=== PATIENT | female | born 1995 | race Caucasian/White ===

== ENCOUNTER 2020-05-15 16:56 | Emergency (ER) | payer MEDICAID ==
[~2020-05-15] VITALS: Ht 152.4 cm; Wt 79.5 kg
[2020-05-15] MEDS ORDERED: ondansetron/PF 4mg/2ml inj IV ONE (17:40)
[2020-05-15] MEDS ORDERED: normal saline 1000ML IV soln IVB ONE ×3 (17:40→21:05)
[2020-05-15 18:17] LABS: ALANINE AMINOTRANSFERASE 36 U/L (12-78); ALBUMIN 4.2 G/DL (3.4-5.0); ALBUMIN/GLOBULIN RATIO 1.1 (1.1-1.5); ALKALINE PHOSPHATASE 75 IU/L (46-116); ANION GAP 13 (8-16); ASPARTATE AMINO TRANSFERASE 26 U/L (10-37); BASOPHILS # (AUTO) 0.1 X10'3 (0-0.2); BASOPHILS % (AUTO) 0.5 % (0-1); BILIRUBIN,TOTAL 0.6 MG/DL (0.1-1.0); BLOOD UREA NITROGEN 8 MG/DL (7-18); BUN/CREATININE RATIO 11.3 (6.6-38.0); CALCIUM 9.3 MG/DL (8.5-10.1); CHLORIDE 103 MMOL/L (99-107); CREATININE 0.71 MG/DL (0.40-0.90); EOSINOPHILS % (AUTO) 0.1 % (0-6); GLUCOSE 101 MG/DL (70-104); HEMATOCRIT 38.4 % (35.0-45.0); LYMPHOCYTES # (AUTO) 3.3 X10'3 (1.1-4.8); LYMPHOCYTES % (AUTO) 22.6 % (21-51); MEAN CORPUSCULAR HGB CONC 33.9 g/dL (33.0-36.5); MEAN CORPUSCULAR VOLUME 85.4 FL (78-98); MONOCYTES # (AUTO) 1.1 X10'3 (0-0.9); MONOCYTES % (AUTO) 7.9 % (2-12); NEUTROPHILS % (AUTO) 68.9 % (42-75); PLATELET COUNT 294 X10'3 (140-440); POTASSIUM 3.4 MMOL/L (3.5-5.1); RED BLOOD COUNT 4.49 X10'6 (4.20-5.60); RED CELL DISTRIBUTION WIDTH 13.5 % (11.5-14.5); SODIUM 139 MMOL/L (135-145); TOTAL CARBON DIOXIDE 23.4 MMOL/L (24-32); WHITE BLOOD COUNT 14.5 X10'3 (4.5-11.0); eGFR > 90 ML/MIN
[2020-05-15 18:46] LABS: BETA HCG,QUANTITATIVE 47312 mIU/ml
[2020-05-15 18:51] LABS: CLARITY,URINE CLEAR (Clear); COLOR,URINE YELLOW (Yellow); GLUCOSE, URINE NEGATIVE (Neg); KETONES,URINE 40 mg/dl (Neg); LEUKOCYTE ESTERASE ,URINE TRACE (Neg); NITRITES, URINE NEGATIVE (Neg); OCCULT BLOOD,URINE NEGATIVE (Neg); PH,URINE 7.5 (4.8-8.0); PROTEIN,URINE TRACE mg/dl (Neg); UROBILINOGEN,URINE 0.2 E.U/dL (0.2-1.0)
[2020-05-15 18:55] LABS: UA COLLECTION TYPE CLN CATCH MIDSTREAM
[2020-05-15 18:57] LABS: BACTERIA,URINE 2+ /HPF (Neg); RBC,URINE 0-2 /HPF (0-2); SQUAMOUS EPITHELIAL CELL,UR MODERATE /LPF (FEW); WBC,URINE 0-4 /HPF (0-4)
[2020-05-15] MEDS ORDERED: PYRIDOXINE HCL (VITAMIN B6) 250 MG TABLET PO STA (19:33)
[2020-05-15] MEDS ORDERED: PROM25TA14 PO (20:21)
--- NOTE | 2020-05-15 20:22 | NUR ---
Pt reports the nausea has increased again and she is having heaves attempting to vomit. Provider made aware of the nausea and vomiting and he reports he will order some medication for her.
[2020-05-15] MEDS ORDERED: proMETHazine 25mg tablet PO ONE (20:25)
[2020-05-15] MEDS ORDERED: metoclopramide 5 mg/ml inj IV ONE (21:05)
[2020-05-15] MEDS ORDERED: PYRI50TA13 PO (22:10)
[2020-05-15] MEDS ORDERED: ONDA4TAB6 PO (22:10)
[2020-05-15 22:28] VITALS: BP 101/59
== END 2020-05-15 22:25 | disposition home or self-care (01) ==
LOC: ER 16:58
DX: O21.0 Mild hyperemesis gravidarum (principal); R10.32 Left lower quadrant pain; Z3A.01 Less than 8 weeks gestation of pregnancy; Z90.89 Acquired absence of other organs; Z98.890 Other specified postprocedural states; Z79.899 Other long term (current) drug therapy
CPT/HCPCS: 36415; 80053; 81001; 84702; 85025; 87088; 96361; 96374; 96375; 99285; J2405; J2765; J7030; Q0169